=== PATIENT | female | born 1955 | race Two or more races ===

== ENCOUNTER 2017-07-23 06:46 | Emergency (ER) | payer OTHER ==
[~2017-07-23] VITALS: Ht 160 cm; Wt 59.0 kg
[~2017-07-23 06:46] MED LIST: CATAFLAM50 MG PO
== END 2017-07-23 12:48 | disposition home or self-care (01) ==
LOC: ER 06:46
DX: S80.02XA Contusion of left knee, initial encounter (principal); W18.39XA Other fall on same level, initial encounter; Y93.89 Activity, other specified; Y92.89 Other specified places as the place of occurrence of the external cause; Y99.8 Other external cause status

== ENCOUNTER 2020-08-22 13:41 | Outpatient (CLI) | payer OTHER | END 2020-08-22 13:57 | disposition home or self-care (01) | LOC: NUCLEAR 13:41 | PROVIDERS: ATTEND Specialist | DX: I82.401 Acute embolism and thrombosis of unspecified deep veins of right lower extremity (principal) ==

== ENCOUNTER → 2020-11-26 | Outpatient (CLI) | payer OTHER | END | disposition home or self-care (01) | LOC: PPH VACUNA 08:05 | PROVIDERS: ATTEND Emergency Medicine Pediatric Emergency Medicine | DX: Z23 Encounter for immunization (principal) ==

== ENCOUNTER 2024-08-07 11:19 | Emergency (ER) | payer OTHER ==
[~2024-08-07] VITALS: Ht 157.5 cm; Wt 58.1 kg
[2024-08-07] MEDS ORDERED: ACETAMINOPHEN 500 MG GEL..CAP PO ONE ×2 (15:37→15:45)
[2024-08-07 16:02] LABS: BASO % 0.2 % (0.1-1.2); EOS # 0.12 (0.04-0.54); EOS % 1.4 % (0.7-7.0); HEMATOCRIT 35.1 % (34.1-44.9); HEMOGLOBIN 11.6 g/dL (11.2-15.7); LYMPH # 2.47 (1.18-3.74); LYMPH % 29.1 % (19.3-53.1); MEAN CORPUSCULAR HEMOGLOBIN 29.3 pg (25.6-32.2); MONO # 0.57 (0.24-0.82); MONO % 6.7 % (4.7-12.5); NEUT # 5.28 (1.56-6.13); NEUT % 62.4 % (34.0-71.1); PLATELET COUNT 309 K/uL (163-369); RED BLOOD COUNT 3.96 M/uL (3.93-5.22); RED CELL DISTRIBUTION WIDTH 13.3 % (11.6-14.4)
[2024-08-07 16:11] LABS: ERYTHROCYTE SEDIMENTATION RATE 25 mm/hr (0-30)
[2024-08-07] MEDS ORDERED: DEXAMETHASONE SODIUM PHOSPHATE 4 MG/ML VIAL IM ONE (18:00)
[2024-08-07] MEDS ORDERED: DEXAMETHASONE SODIUM PHOSPHATE 4 MG/ML VIAL ONE ×2 (18:29→18:31)
== END 2024-08-07 19:11 ==
LOC: ER 11:19 → EDBD 11:27 → ER 19:11
DX: M79.671 Pain in right foot (principal); Z88.2 Allergy status to sulfonamides; M85.871 Other specified disorders of bone density and structure, right ankle and foot; M10.9 Gout, unspecified; N05.8 Unspecified nephritic syndrome with other morphologic changes; E03.8 Other specified hypothyroidism; J45.909 Unspecified asthma, uncomplicated; I10 Essential (primary) hypertension; M77.31 Calcaneal spur, right foot
CPT/HCPCS: 73630; 96372; 99283; J1200